=== PATIENT | male | born 1970 ===

== ENCOUNTER 2024-12-14 08:30 | Inpatient (IN) | payer OTHER ==
[~2024-12-14] VITALS: Ht 170.2 cm; Wt 77.1 kg
[2024-12-14 12:39] VITALS: BP 154/90
[2024-12-14] MEDS ORDERED: GRALISE600 MG PO (12:39)
[2024-12-14 12:50] LABS: BASO % 1.2 % (0.1-1.2); EOS # 2.03 (0.04-0.54); LYMPH # 2.20 (1.18-3.74); LYMPH % 20.1 % (19.3-53.1); MEAN PLATELET VOLUME 9.50 fl (9.4-12.4); MONO # 0.82 (0.24-0.82); MONO % 7.5 % (4.7-12.5); NEUT # 5.75 (1.56-6.13); NEUT % 52.4 % (34.0-71.1); RED CELL DISTRIBUTION WIDTH 11.7 % (11.6-14.4)
[2024-12-14 12:52] LABS: EOS % 18.5 % (0.7-7.0)
[2024-12-14 13:03] LABS: URINE APPEARANCE Clear; URINE BILIRRUBIN Negative (NEGATIVE); URINE BLOOD Negative; URINE COLOR Yellow; URINE GLUCOSE Negative (NEGATIVE); URINE KETONE Trace (NEGATIVE); URINE LEUKOCYTE Negative; URINE NITRATE Negative; URINE PROTEIN Negative (NEGATIVE); URINE UROBILINOGEN 0.2 E.U./dl
[2024-12-14 13:03] LABS: INR 1.15
[2024-12-14 13:07] LABS: URINE BACTERIA 4.8 uL (0.0-1933); URINE EPITHELIAL CELLS 1.9 uL (0.0-38.8); URINE RBC 4.8 uL (0.0-20.8); URINE WBC 3.0 uL (0.0-23.2)
[2024-12-14 13:21] LABS: URINE CAST 0.14 uL (0.0-1.40)
[2024-12-14 13:25] LABS: COVID-19 AG NEGATIVE (NEGATIVE)
[2024-12-14 13:30] LABS: BUN CREA RATIO 12.0 (7.0-25.0); CREATININE SERUM 0.93 mg/dL (0.70-1.30); GFR 84.05; GLUCOSE FASTING 92.0 mg/dL (65-100); OSMOLALITY SERUM 280.0 MOSM/KG (275-295)
[2024-12-14 13:58] LABS: RH POSITIVE
[2024-12-19] MEDS ORDERED: ENOXAPARIN SODIUM 40 MG/0.4 ML SYRINGE SUBCUTANEO ONE ×2 (11:10→14:00)
[2024-12-19] MEDS ORDERED: CEFAZOLIN SODIUM 1,000 MG VIAL ONE (11:11)
[2024-12-19] MEDS ORDERED: HEMOSTATIC MATRIX 1 KIT KIT TOP ONE ×2 (12:24→14:00)
[2024-12-19] MEDS ORDERED: BUPIVACAINE HCL/MPF 0.5% 30ML VIAL ONE (12:25)
[2024-12-19] MEDS ORDERED: SUGAMMADEX SODIUM 200 MG/2 ML VIAL IV ONE ×2 (13:56→14:15)
[2024-12-19] MEDS ORDERED: CEFAZOLIN SODIUM 1,000 MG VIAL IV ONE (14:00)
[2024-12-19] MEDS ORDERED: BUPIVACAINE HCL 30 ML VIAL IJ ONE (14:00)
[2024-12-19] MEDS ORDERED: SURGIFLO APPLICATOR 1 EACH APPL TOP ONE (14:00)
[2024-12-19] MEDS ORDERED: RINGERS SOLUTION,LACTATED 1,000 ML IV SCH (17:15)
[2024-12-19] MEDS ORDERED: ONDANSETRON HCL 2 MG/ML VIAL IV PRN (17:15)
[2024-12-19] MEDS ORDERED: MORPHINE SULFATE 4 MG/ML CARTRIDGE IV PRN (17:15)
[2024-12-19] MEDS ORDERED: TEMAZEPAM 15 MG CAPSULE PO PRN (17:30)
[2024-12-19] MEDS ORDERED: MORPHINE SULFATE 4 MG/ML VIAL IV ONE (19:40)
[2024-12-19] MEDS ORDERED: FAMOTIDINE/PF 20 MG/2 ML VIAL IV SCH (21:00)
[2024-12-19] MEDS ORDERED: CEFAZOLIN SODIUM 1,000 MG VIAL IV SCH (21:00)
[2024-12-19 21:03] VITALS: BP 140/83; O2SAT 97
[2024-12-20] MEDS ORDERED: GABAPENTIN 300 MG CAPSULE PO SCH (01:00)
[2024-12-20 02:40] VITALS: BP 112/71; O2SAT 96
[2024-12-20 06:56] LABS: BASO % 0.8 % (0.1-1.2); EOS # 0.21 (0.04-0.54); EOS % 1.9 % (0.7-7.0); LYMPH # 1.50 (1.18-3.74); LYMPH % 13.4 % (19.3-53.1); MEAN PLATELET VOLUME 9.40 fl (9.4-12.4); MONO # 1.10 (0.24-0.82); MONO % 9.8 % (4.7-12.5); NEUT # 8.28 (1.56-6.13); NEUT % 73.8 % (34.0-71.1); RED CELL DISTRIBUTION WIDTH 11.5 % (11.6-14.4)
[2024-12-20 07:29] LABS: BUN CREA RATIO 12.0 (7.0-25.0); CREATININE SERUM 0.85 mg/dL (0.70-1.30); GFR 93.24; GLUCOSE FASTING 104.0 mg/dL (65-100); OSMOLALITY SERUM 277.0 MOSM/KG (275-295)
[2024-12-20 08:00] VITALS: BP 121/68; O2SAT 94
[2024-12-20] MEDS ORDERED: ENOXAPARIN SODIUM 40 MG/0.4 ML SYRINGE SUBCUTANEO SCH (09:00)
== END 2024-12-20 13:33 | disposition home or self-care (01) | DRG 708 ==
LOC: SURH 12-19 07:00 → O/R 12-19 09:00 → SURH 12-19 18:06
PROVIDERS: ADMIT Urology; ATTEND Urology
PROC: 8E0W4CZ Robotic Assisted Procedure of Trunk Region, Percutaneous Endoscopic Approach (ICD-10-PCS; 2024-12-19)
PROC: 0VT04ZZ Resection of Prostate, Percutaneous Endoscopic Approach (ICD-10-PCS; principal; 2024-12-19 07:00)
DX: C61 Malignant neoplasm of prostate (principal)
CPT/HCPCS: 55866; S2900